=== PATIENT | female | born 1975 | race Caucasian/White ===

== ENCOUNTER 2017-08-31 18:19 | Emergency (ER) | payer OTHER ==
[~2017-08-31] VITALS: Ht 160 cm; Wt 110.2 kg
[2017-08-31 19:39] LABS: HEMATOCRIT 40.5 % (36.0-46.0); MCH 28.6 PG (29.0-34.0); MCHC 33.1 G/DL (30.0-36.0); MCV 86.4 FL (83-99); MEAN PLAT.VOLUME 8.9 uM^3 (9.5-12.4); PLATELET COUNT 304 K/uL (156-360); RBC DIS.WIDTH-CV 13.2 % (11.8-14.6); RBC DIS.WIDTH-SD 41.4 % (39-53); RED BLOOD COUNT 4.69 M/uL (3.80-5.20); WHITE BLOOD COUNT 10.9 K/uL (4.1-10.2)
[2017-08-31 19:51] LABS: CHLORIDE 108 mEq/L (99-109)
[2017-08-31 19:52] LABS: POTASSIUM 4.2 mEq/L (3.7-5.4); SODIUM 140 mEq/L (136-147)
[2017-08-31 19:54] LABS: GLUCOSE 91 mg/dL (70-99)
[2017-08-31 19:55] LABS: ANION GAP 8 MEQ/L (2-14)
[2017-08-31 19:56] LABS: TOTAL BILIRUBIN 0.2 mg/dL (0.0-1.0)
[2017-08-31 19:57] LABS: ALKALINE PHOSPHATASE 69 IU/L (3-129); GFR ESTIMATE (CALCULATED) > 59 mL/min/
[2017-08-31 19:59] LABS: UREA NITROGEN (BUN) 12 mg/dL (9-23)
[2017-08-31 20:01] LABS: LIPASE 26 U/L (1.0-51.0)
[2017-08-31 20:09] LABS: QUANTITATIVE HCG < 4.0 MIU/ML
[2017-08-31 20:18] LABS: ADD MIUA? YES; BILIRUBIN NEGATIVE; BLOOD MODERATE; COLOR YELLOW ((YELLOW)); GLUCOSE (STRIP) NEGATIVE; KETONES 20; LEUKOCYTES NEGATIVE; NITRITE NEGATIVE; PROTEIN (STRIP) NEGATIVE; SPECIFIC GRAVITY 1.018 (1.000-1.030); UROBILINOGEN 0.2 MG/DL (0.2-1.0)
[2017-08-31 20:27] LABS: BACTERIA NONE SEEN /HPF; EPITHELIAL CELLS RARE /HPF; MUCUS TRACE /LPF; RED BLOOD CELLS 0-5 /HPF (0-5); UCUL ADDED? NO; WHITE BLOOD CELLS 0-5 /HPF (0-5)
[2017-08-31] MEDS ORDERED: MOTRIN600 MG PO (21:10)
[2017-08-31 21:18] VITALS: BP 163/110
== END 2017-08-31 21:19 | disposition home or self-care (01) ==
LOC: EME 18:19
PROVIDERS: Physician Assistant
DX: R10.9 Unspecified abdominal pain (principal); R03.0 Elevated blood-pressure reading, without diagnosis of hypertension
CPT/HCPCS: 74176; 80053; 81003; 83690; 84702; 85027; 99281; 99284

== ENCOUNTER 2017-12-13 05:42 | Day surgery (SDC) | payer OTHER ==
[~2017-12-13] VITALS: Ht 160 cm; Wt 108.9 kg
[~2017-12-13 05:42] MED LIST: MOTRIN600 MG PO; MOTRIN800 MG PO; NEURONTIN300 MG PO; ZYRTEC10 M3 PO
[2017-12-13 06:47] VITALS: BP 139/94
[2017-12-13] MEDS ORDERED: TYLENOL REGULA325 MG PO (06:47)
[2017-12-13] MEDS ORDERED: PERCOCET 5/31 TABLET PO (08:32)
[2017-12-13 10:22] VITALS: BP 138/65
[2017-12-13 11:17] VITALS: BP 128/74
[2017-12-13 12:32] VITALS: BP 108/66
== END 2017-12-13 12:32 | disposition home or self-care (01) ==
LOC: SDC 05:42
PROC: 0UT74ZZ Resection of Bilateral Fallopian Tubes, Percutaneous Endoscopic Approach (ICD-10-PCS; principal; 2017-12-13)
DX: Z30.2 Encounter for sterilization (principal); Z40.09 Encounter for prophylactic removal of other organ; J45.909 Unspecified asthma, uncomplicated
CPT/HCPCS: 88302; J0131; J0330; J1100; J1170; J1885; J2250; J2405; J2710; J2765; J3010